=== PATIENT | female | born 1995 | race Asian ===

== ENCOUNTER 2019-10-21 18:59 | Inpatient (IN) ==
[2019-10-21 20:55] LABS: ABS Lymphocytes 1.6 10^3/ul (1.0-4.8); ABS Monocytes 0.5 10^3/ul (0-0.8); ABS Neutrophils 9.9 10^3/ul (1.5-7.7); Eosinophil % 0.3 %; Hematocrit 44 % (35-47); Hemoglobin 15.1 g/dL (12.0-16.0); Lymphocyte % 13.3 %; Mean Corpuscular HGB Conc 34 g/dL (31-36); Mean Corpuscular Hemoglobin 31 pg (27-31); Mean Corpuscular Volume 92 fL (80-97); Mean Platelet Volume 8.2 fL (7.4-10.4); Nucleated Red Blood Cells % 0.1; Platelet Count 295 10^3/uL (150-450); Red Blood Count 4.83 10^6 /uL (3.70-4.87); Red Cell Distribution Width 13 % (10-15); White Blood Count 12.1 10^3/uL (3.5-10.8)
[2019-10-21 21:07] LABS: ALT 15 U/L (7-52); AST 20 U/L (13-39); Albumin 4.9 g/dL (3.2-5.2); Albumin/Globulin Ratio 1.4 (1-3); Alkaline Phosphatase 58 U/L (34-104); Anion Gap 11 mmol/L (2-11); BUN/Creatinine Ratio 10.6 (8-20); Blood Urea Nitrogen 7 mg/dL (6-24); C Reactive Protein 191.74 mg/L (<8.01); CO2 Carbon Dioxide 23 mmol/L (22-32); Calcium 9.6 mg/dL (8.6-10.3); Chloride 102 mmol/L (101-111); EGFR Non-African American 109.1 (>60); Globulin 3.4 g/dL (2-4); Glucose 98 mg/dL (70-100); Lipase 24 U/L (11.0-82.0); Potassium 3.8 mmol/L (3.5-5.0); Sodium 136 mmol/L (135-145); Total Protein 8.3 g/dL (6.4-8.9)
[2019-10-21 21:14] LABS: HCG Pregnancy < 0.60 mIU/mL
[2019-10-21] MEDS ORDERED: Ondansetron 4 mg VIAL 2 MG/ML 2 ml VIAL IV ONE (22:18)
[2019-10-21] MEDS ORDERED: NS 0.9% 1000 ml BAG 1,000 ML IV ONE (22:18)
[2019-10-21] MEDS ORDERED: Iohexol 300 (CONTRAST) 10 ML SDV IV ONE (22:27)
[2019-10-21 22:53] LABS: Urine Appearance Clear; Urine Bilirubin Negative (Negative); Urine Blood Negative (Negative); Urine Color Straw; Urine Glucose Negative (Negative); Urine Ketones 1+ (Negative); Urine Nitrite Negative (Negative); Urine Protein Negative (Negative); Urine Specific Gravity 1.003 (1.010-1.030); Urine Urobilinogen Negative (Negative)
[2019-10-21] MEDS ORDERED: Clindamycin 900 MG/D5W BAG 900 MG/50 ML BAG IVPB ONE (23:51)
[2019-10-21] MEDS ORDERED: Ampicillin ADVAN 1 GM in NS 0.9% 50 ML 50 ML IVPB ONE (23:51)
[2019-10-21] MEDS ORDERED: Gentamicin ADULT 40 MG/ML VIAL (2 ML VIAL = 80 MG) IVPB ONE (23:52)
[2019-10-22] MEDS ORDERED: Ampicillin ADVAN 2 GM in NS 0.9% 100 ml BAG 100 ML IVPB ONE (00:30)
[2019-10-22] MEDS ORDERED: GENTAMICIN ADULT IVPB ONE ×2 (01:00→01:27)
[2019-10-22] MEDS ORDERED: NS 0.9% IVPB ONE ×2 (01:00→01:27)
[2019-10-22] MEDS: Clindamycin 900 MG/D5W BAG 900 MG/50 ML BAG IVPB SCH ×2 (05:52→11:52)
[2019-10-22 06:49] LABS: ABS Lymphocytes 2.1 10^3/ul (1.0-4.8); ABS Monocytes 0.7 10^3/ul (0-0.8); ABS Neutrophils 7.1 10^3/ul (1.5-7.7); Eosinophil % 0.4 %; Hematocrit 36 % (35-47); Hemoglobin 12.6 g/dL (12.0-16.0); Mean Corpuscular HGB Conc 35 g/dL (31-36); Mean Corpuscular Hemoglobin 32 pg (27-31); Mean Corpuscular Volume 92 fL (80-97); Mean Platelet Volume 8.5 fL (7.4-10.4); Platelet Count 205 10^3/uL (150-450); Red Blood Count 3.91 10^6 /uL (3.70-4.87); Red Cell Distribution Width 13 % (10-15)
[2019-10-22] MEDS: Ampicillin ADVAN 2 GM in NS 0.9% 100 ml BAG 100 ML IVPB SCH ×2 (07:06→12:36)
[2019-10-22] MEDS ORDERED: Influenza VAC *QUAD* 2020-21* 0.5 ML SYRINGE IM ONE (09:00)
[2019-10-22 12:59] LABS: Chlamydia trachomatis NAA Negative (Negative); Neisseria gonorrhoeae (GC) NAA Negative (Negative)
[2019-10-22 15:53] VITALS: BP 105/55
[2019-10-22] MEDS ORDERED: Clindamycin 900 MG/D5W BAG 900 MG/50 ML BAG IVPB SCH (20:00)
[2019-10-23] MEDS ORDERED: NS 0.9% IVPB SCH (01:00)
[2019-10-23] MEDS ORDERED: GENTAMICIN ADULT IVPB SCH (01:00)
== END 2019-10-22 19:15 | disposition home or self-care (01) ==
LOC: ED 18:59 → SSU 10-22 01:36
PROVIDERS: ADMIT Obstetrics & Gynecology; ATTEND Obstetrics & Gynecology